=== PATIENT | female | born 2000 | race Caucasian/White ===

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

== ENCOUNTER 2024-02-22 16:14 | Emergency (ER) | payer OTHER, SELFPAY ==
--- NOTE | ~2024-02-22 | XR_ITS ---
EXAMINATION: XR lumbar spine 2-3V DATE: 02/22/2024 16:51 INDICATION: Bilateral low back pain TECHNIQUE: Anteroposterior and lateral views of the lumbar spine, and cone-down lateral view of the l umbosacral junction were obtained. COMPARISON: None. FINDINGS: 7 degrees lumbar levocurvature. Mild straightening of the normal lumbar lordosis. Vertebral body heig hts are normal. Mild disc height loss at L2-L3 through L5-S1. Sacrum and bilateral sacralized joints are unremarkable. IMPRESSION: 1. Mild lumbar levocurvature with mild spondylosis. Reviewed, dictated and finalized at location A.
[2024-02-22 16:20] VITALS: BP 123/71; PULSE 98; RESP 18; TEMP 36.6; O2SAT 99
--- NOTE | 2024-02-22 16:30 | ED.BACK ---
HPI - Back Pain/Injury General Chief Complaint: Back Pain/Injury Stated Complaint: lower back pain Time Seen by Provider: 02/22/24 16:30 Source: patient, RN notes reviewed and old records reviewed Mode of arrival: ambulatory Limitations: no limitations History of Present Illness HPI Narrative: Year old female to Express Care for complaint bilateral lower back pain for approximately 6-8 weeks. Patient reports the pain is getting increasingly worse. patient reports the pain constant and worse when bending over. Patient states that she has a 1-year-old and that is increasingly difficult for her to bend over and pick him up. Patient states that she has a history of mild scoliosis as a child that had resolved. Patient has attempted to treat at home with a heating pad and xaza-paf-ucenegt medications. Patient reports last menstrual cycle was January 16. Patient does not have a primary care provider. Patient denies urinary changes, saddle anesthesia, bowel changes, urinary or bowel incontinence, known injury, numbness, weakness, tingling. Patient currently endorsing pain 9/10. Patient in mild distress from discomfort; standing next to exam table, bent over with arms on table, stating she cannot get comfortable. No acute distress. Related Data Allergies Allergy/AdvReac Type Severity Reaction Status Date / Time acetaminophen Allergy Unknown Anaphylactic Verified 02/22/24 16:16 Shock hydrocodone Allergy Unknown Anaphylactic Verified 02/22/24 16:16 Shock Review of Systems Review of Systems: All systems reviewed & are unremarkable except as noted in HPI and below Constitutional: Constitutional: Reports no additional constitutional complaints Eyes: Eyes: Reports no additional eye complaints ENT: Reports system reviewed and no additional complaints, except as documented Cardiovascular: Cardiovascular: Reports no additional cardiovascular complaints, Denies chest pain and Denies dyspnea Respiratory: Respiratory: Reports no additional respiratory complaints, Denies cough and Denies dyspnea Musculoskeletal: Musculoskeletal: Reports as per HPI, Denies abnormal gait, Reports back pain, Reports limited range of motion, Denies muscle cramps, Denies muscle weakness, Denies numbness, Denies stiffness and Denies tingling Neurologic: Reports system reviewed and no additional complaints, except as documented Psychiatric: Psychiatric: Reports no additional psychiatric complaints PMFSH Past Medical History Medical History Strep pharyngitis Surgical History Surgical History No history of previous surgery Family History Family History Other Family history non-contributory Social History Social History Smoking status: Never smoker Alcohol intake: never Substance use: never Living arrangements: with family Comments At the time of my signature, I reviewed and agree with the nursing past medical, surgical, social, and family history. There is no relevant family history pertinent to the patient complaint. Exam Const: General: no acute distress, alert, in distress moderate (from pain), uncomfortable and well nourished Nutritional Appearance: well nourished Orientation/consciousness: patient oriented x3 Limitations: no limitations HENMT: Head: normal to inspection Ears: external ears normal Face/Nose/Sinus: Normal external nose present, Normal nares present, normal facial exam, No erythema and No edema Face and sinus: normal facial exam, no erythema and no edema Mouth: Yes Normal oral and palatal mucosa present Eyes: General: appearance normal, both eyes and all related structures Neck: Neck: normal visual inspection, full ROM and no meningeal signs Lymphatic: no lymph
== END 2024-02-22 17:46 | disposition home or self-care (01) ==
PROVIDERS: Emergency Provider Nurse Practitioner Family
DX: M47.816 Spondylosis without myelopathy or radiculopathy, lumbar region (principal); M54.50 Low back pain, unspecified
CPT/HCPCS: 72100; 99213; G0463

== ENCOUNTER 2024-09-26 17:10 | Emergency (ER) | payer OTHER, SELFPAY ==
--- NOTE | ~2024-09-26 | XR_ITS ---
EXAMINATION: XR ankle LT min 3V DATE: 09/26/2024 17:53 INDICATION: Left ankle pain. TECHNIQUE: 4 views of left ankle were obtained. COMPARISON: None. FINDINGS: Alignment is normal. No fracture. Joint spaces are normal. There is an enthesophyte at plan tar aspect of calcaneal tuberosity. IMPRESSION: 1. No fracture. Reviewed, dictated and finalized at location A. RANCE ADJUSTOR IMPRESSION: 1. No fracture.
--- OUTSIDE RECORDS SUMMARY | 2024-09-26 17:14 | XMS_ITS | Referral Summary ---
Author Organization [facility] Address [address] [place] [address] Care Team Providers Care Wire Charger Name Role Phone Nettie Rinaldi MD Primary Care Provider [phone] Allergies Active Allergy Reactions Criticality Noted Date Comments Hydrocodone-Acetaminophen Unknown 07/10/2021 States she was young when she took it and her mom didn't inform her what her reaction was. Medications vit-iron fum-folic ac 27 mg iron- 0.8 mg tablet Take 1 tablet by mouth daily Active docusate sodium (COLACE) 100 mg capsuleIndicati ons:constipatio n,Stool Softener Take 1 capsule (100 mg total) by mouth 2 (two) times a day as needed for constipation 60 capsule 3 Active ibuprofen (ADVIL,MOTRIN) 600 mg tabletIndicatio ns:Cramps Take 1 tablet (600 mg total) by mouth every 6 (six) hours as needed for pain 90 tablet 3 Active cyclobenzaprine (FLEXERIL) 10 mg tablet Take 1 tablet (10 mg total) by mouth nightly 10 tablet 4 Active lidocaine (LIDODERM) 5 % Place 1 patch on the skin daily Remove & discard patch within 12 hours or as directed by . 30 patch 4 Active Active Problems Problem Noted Date Diagnosed Date PROM (premature rupture of membranes) 12/02/2022 care following vaginal delivery 12/02 Overview (12/04/2022): # ID: Afebrile. No signs/symptoms of infection. 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 No symptoms acute blood loss anemia. # CV/Pulm: Vital signs stable, within normal limits. # GI/: Tolerating PO. Voiding spontaneously. # Pain: Controlled with above regimen. # MOC: Declines s/p counseling. # MOF: . Urine drug screen not indicated. Patient informed of results: N/A. # Post DVT prophylaxis: The patient has the following MAJOR risk factors none and the following MINOR risk factors BMI 30-39. SCDs ordered for VTE prophylaxis. # Disposition: Follow up task not sent.-plan follow up with primary OB in [place], [place]. Desires discharge home today. Social History Tobacco Use Types Packs/Day Years Used Date Smoking Tobacco: Never Smokeless Tobacco: Never Alcohol Use Standard Drinks/Week Comments Not Currently 0 (1 standard drink = 0.6 oz pur e alcohol) Social Connection and Isolat ion Panel [NHANES] Answer Date Recorded In a typical week, how many times do you talk on the phone with family, friends, or neighbors? More than three times a week 12/03/2022 How often do you get togethe r with friends or relatives? More than three times a week 12/03/2022 How often do you attend chur ch or mormon services? Never 12/03/2022 Do you belong to any clubs o r organizations such as gnosticist groups, unions, fraternal or athletic groups, or school groups? No 12/03/2022 How often do you attend meet ings of the clubs or organizations you belong to? Never 12/03/2022 Are you , , di vorced, , never , or living with a partner? Living with partner 12/03/2022 AUDIT-C Answer Date Recorded Q1: How often do you have a drink containing alc ohol? Never 12/02/2022 Average Number of Drinks Not on file 023 Frequency of Binge Drinking Not on file 11/05 Overall Financial Resource Strain (CARDIA) Answe r Date Recorded How hard is it for you to pa y for the very basics like food, housing, medical care, and heating? Not hard at all 12/03/2022 PHQ-2 Answer Date Recorded PHQ-2 Total Score (If total score is 3 or more points, staff should administer the PHQ-9) 0 11/22/2022 [facility] [place] [facility] Occupat ional Health - Occupational Stress Questionnaire Answer Date Recorded Do you feel stress - tense, restless, nervous, or anxious, or unable to sleep at night because your mind is troubled all the time - these days? Not at all 11/22/2022 Exercise Vital Sign Answer Date Recorde d On average, how many days pe r week do you engage in moderate to strenuous exercise (like a brisk walk)? 0 days 11/22/2022 On average, how many minutes do you engage in exercise at this level? 0 min 11/22/2022 Hunger Vital Sign Answer Date Recorded Within the past 12 months, y ou worried that your food would run out before you got the money to buy more. Never true 12/04/19 23 Within the past 12 months, t he food you bought just didn't last and you didn't have money to get more. Never true 12/03/2022 PRAPARE - Transportation Answer Date Re corded In the past 12 months, has l ack of transportation kept you from medical appointments or from getting medications? No 08/2022 In the past 12 months, has l ack of transportation kept you from meetings, work, or from getting things needed for daily living? No 12/03/2022 Housing Stability Vital Sign Answer Bashir e Recorded In the last 12 months, was t here a time when you were not able to pay the mortgage or rent on time? No 12/03/2022 In the last 12 months, how many places have you lived? 2 12/03/2022 In the last 12 months, was t here a time when you did not have a steady place to sleep or slept in a alf (including now)? No 12/03/2022 Personal Safety Answer Date Recorded Have you ever been in or are you currently in a harmful physical or emotional relationship or is someone making you feel afraid or unsafe? 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 Gender Identity Not on file Sexual Orientation Not on file Last Filed Vital Signs Vital Sign Reading Time Taken Comments Blood Pressure 120/85 03/31/2024 7:28 PM CDT Pulse 112 03/31/2024 7:27 PM CDT Temperature 36.9 C (98.5 F) 03/31/2024 7:27 PM CDT Respiratory Rate 18 03/31/2024 7:27 PM CDT Oxygen Saturation 98% 03/31/2024 7:27 PM CDT Inhaled Oxygen Concentration - - Weight 104.3 kg (230 lb) 03/31/2024 7:27 PM CDT Height 167.6 cm (5' 6 ) 03/31/2024 7:27 PM CDT Body Mass Index 37.12 03/31/2024 7:27 PM CDT Plan of Treatment Not on file Procedures Procedure Name Priority Date/Time Associated Diagnosis Comments N. GONORRHOEAE/C. TRACHOMATIS AMPLIFICATION Routine 12/02/2022 2:46 PM CDT from Last 3 Months or Most Recently Relevant to Health Maintenance Results * N. gonorrhoeae/C. trachomatis Amplification Urine (12/02/2022 2:46 PM CDT) C. trachomatis Not Detected Not Detected [facility] N. gonorrhoeae Not Detected Not Detected [facility] Comment: Interpretive Data Testing performed by the [facility]. This assay detects Chlamydia trachomatis and Neisseria gonorrhoeae by nucleic acid amplification testing (NAAT). This test is approved by the [place] Food and Drug Administration and the performance characteristics have been verified by the laboratory. The performance characteristics of this test have not been evaluated in individuals less than 14 years of age. Current Interpretive Data was last revised on 2018. Urine (None) 12/02/2022 2:46 PM CDT 12/02/2022 3:17 PM CDT Patricia Mckeon MD LAB MICROBIOLOGY - GENERAL ORDERABLES Final Result [facility] [place] [address] from Last 3 Months or Most Recently Relevant to Health Maintenance Insurance [facility] [id number] [place] [address] Advance Directives For more information, please contact: [phone] * Full Code (Latest Code Status on File) Date Activated Date Inactivated Comments 12/03/2022 2:11 AM 12/04/2022 9:52 PM * Full Code Date Activated Date Inactivated Comments 12/02/2022 1:44 PM 12/03/2022 2:11 AM Full CPR in c ase of cardiopulmonary arrest Care Teams Wire Charger Relationship Specialty Start Date End Date Nettie Rinaldi MD [id number] [place] [address] PCP - General Family Medicine 03/31/24
--- OUTSIDE RECORDS SUMMARY | 2024-09-26 17:14 | XMS_ITS | Data Portability ---
Author Organization [facility] ANNEOmar Address [address] [place] [address] Care Team Providers Care Laborer Tanbark Name Role Phone ALBA CABRERA Primary Care Provider DANTE HOWARD Roof Tiler Assessment Encounter Date Assessment Date Assessment LastModified by Organization Details LastModified Time 11/27/2022 11/27/2022 33+ weeks, GBs done today valtrex RX good spirits Not available 11/27/2022 11:33:55 12/11/2022 12/11/2022 ppd check today is normal discussed her transfer for PROM and subsequent delivery Not available 12/11/2022 11:59:29 12/25/2022 12/25/2022 ppd check today is OK will start minipill exam in 4 weeks Not available 12/25/2022 11:40:55 01/22/2023 01/22/2023 normal PP exam after first vaginal delivery breast and bottle feeding ; has started micronor / will call for regular OCPs when done no PPD issues / has enough help Not available 01/22/2023 12:08:34 01/27/2024 01/27/2024 manager practice exam benign will restart OCPs on next cycle for contraception and dysmenorrhea Not available 01/27/2024 15:45:09 Plan of Treatment Reminders Order Date Submit Date Provider Last Modified By Organization Details Last Modified Time Details Appointments None recorded. Lab cytology report, thin prep, smear or scraping, cervical or vaginal 2023 024 [facility], [address] [facility] [address], [place], [address], 4 16:12:54 urinalysis, dipstick 2022 023 In-Office Order, Internal Use Only DO Not Attach Compendium DO Not Attach Compendium, Do Not Delete/merge, [id number] 3 11:33:58 streptococc us group B DNA 2022 023 [facility], [address] [facility] [address], [place], [address], 3 16:13:29 Referral None recorded. Procedures None recorded. Surgeries None recorded. Imaging None recorded. Medication Orders Junel Fe 24 1 mg-20 mcg (24)/75 mg (4) tablet 2023 024 [id number], [address], [place], [place], [phone], 4 15:45:46 Ortho Micronor 0.35 mg tablet 2022 023 [facility][id number], [address], [place], [place], [phone], 3 11:41:17 valacyclovi r 500 mg tablet 2022 023 [facility] #[id number], [address], [place], [place], [phone], 3 11:34:06 Patient TargetsNo targets recorded. Patient Instructions Encounter Date Encounter Id Patient Instructions Last Modified By Organization Details Last Modified Time 11/27/2022 [id number] genital herpes: care instructions [email or web address] Not available 11/27/2022 11:33:58 tetanus and diphtheria booster: care instructions Not available 11/27/2022 11:33:58 12/11/2022 [id number] depression after childbirth: care instructions Not available 12/11/2022 11:59:30 stress in parent s of infants: care instructions Not available 12/11/2022 11:59:30 edinburgh depression scale* Not available 12/11/2022 11:59:30 12/25/2022 [id number] depression after childbirth: care instructions Not available 12/25/2022 11:41:10 stress in parent s of infants: care instructions Not available 12/25/2022 11:41:10 edinburgh depression scale* Not available 12/25/2022 11:41:10 01/22/2023 [id number] edinburgh depression scale* Not available 01/22/2023 12:08:34 01/27/2024 [id number] A healthy lifestyle: care instructions er7 Not available 01/27/2024 15:36:39 Quitting Tobacco : Care Instructions urner Not available 01/27/2024 15:36:38 Reason for Referral None Reported. Results Created Date Observation Date Name Description Value Unit Range Abnormal Flag Note LastModifiedBy Organization Detail LastModifiedTime 10/31/1910/30/2022 urina lysis , dipst ick Protein Negati ve Not Available In-Office Order Internal Use Only DO Not Attach Compendium DO Not Attach Compendium, Do Not Delete/merge, 10/26/2022 16:40:36 10/31/19 23 10/30/2022 urina lysis , dipst ick Glucose Negati ve Not Available In-Office Order Internal Use Only DO Not Attach Compendium DO Not Attach Compendium, Do Not Delete/merge, 10/26/2022 16:40:36 10/31/19 23 10/30/2022 urina lysis , dipst ick Appearance Slight ly Cloudy Not Available In-Office Order Internal Use Only DO Not Attach Compendium DO Not Attach Compendium, Do Not Delete/merge, 10/26/2022 16:40:36 10/31/19 23 10/30/2022 urina lysis , dipst ick Color Pale Yellow Not Available In-Office Order Internal Use Only DO Not Attach Compendium DO Not Attach Compendium, Do Not Delete/merge, [id number] 10/26/2022 16:40:36 11/14/19 23 11/13/2022 urina lysis , dipst ick Protein Trace Not Available In-Office Order Internal Use Only DO Not Attach Compendium DO Not Attach Compendium, Do Not Delete/merge, [id number] 11/12/2022 10:07:32 11/14/19 23 11/13/2022 urina lysis , dipst ick Glucose Negati ve Not Available In-Office Order Internal Use Only DO Not Attach Compendium DO Not Attach Compendium, Do Not Delete/merge, [id number] 11/12/2022 10:07:32 11/28/19 23 11/29/2022 STREP GP B AB strep gp B AB Positi ve negati ve abnormal Cente rs for Disea se Contr ol and Preve ntion (CDC) and Liz can Congr ess of Obste trici ans and Gynec ologi sts (ACOG ) guide lines for preve ntion of perin atal group B strep tococ grace (GBS) disea se speci fy co-co llect ion of a vagin al and recta l swab speci men to maxim ize sensi tivit y of GBS detec tion. Per the CDC and ACOG, swabb ing both the lower vagin a and rectu m subst antia lly incre ases the yield of detec tion polly red with sampl ing the vagin a alone . Penic illin G, ampic illin , or cefaz kate are indic ated for intra partu m proph ylaxi s of perin atal GBS colon izati on. Refle x susce ptibi lity testi ng shoul d be perfo rmed prior to use of clind amyci n only on GBS isola atilio from penic illin -rachel rgic women who are consi dered a high risk for anaph ylaxi s. Treat ment with vanco mycin witho ut addit ional testi ng is warra nted if resis tance to clind amyci n is noted . Not Available [facility] ([facility]) [address], [place], [address], 11/29/2022 16:13:29 11/28/19 23 11/27/2022 urina lysis , dipst ick Protein Negati ve Not Available In-Office Order Internal Use Only DO Not Attach Compendium DO Not Attach Compendium, Do Not Delete/merge, [id number] 11/26/2022 11:07:29 11/28/19 23 11/27/2022 urina lysis , dipst ick Glucose 2000+ Not Available In-Office Order Internal Use Only DO Not Attach Compendium DO Not Attach Compendium, Do Not Delete/merge, [id number] 11/26/2022 11:07:29 12/12/19 23 12/11/2022 edinb urgh postn atal depre ssion scale * Score 2 Not Available In-Office Order Internal Use Only DO Not Attach Compendium DO Not Attach Compendium, Do Not Delete/merge, [id number] 12/11/2022 11:31:45 12/26/19 23 12/25/2022 edinb urgh postn atal depre ssion scale * Score 2 Not Available In-Office Order Internal Use Only DO Not Attach Compendium DO Not Attach Compendium, Do Not Delete/merge, [id number] 12/25/2022 11:28:55 01/23/20 23 01/22/2023 edinb urgh postn atal depre ssion scale * Score 0 Not Available In-Office Order Internal Use Only DO Not Attach Compendium DO Not Attach Compendium, Do Not Delete/merge, [id number] 01/22/2023 11:56:43 01/27/20 24 01/29/2024 IGP,C TNGTV ,RFX APTIM A HPV ASCU diagnosis: COMMEN T NEGAT JODIE FOR INTRA EPITH ELIAL LESIO N OR AISSATOU TEJADA . Not Available [facility] ([facility]) [address], [place], [address], 01/29/2024 16:12:54 01/27/20 24 01/29/2024 IGP,C TNGTV ,RFX APTIM A HPV ASCU specimen adequacy: COMMEN T Satis facto ry for evalu ation . Endoc ervic al and/o r squam ous metap lasti c cells (endo cervi grace compo nent) are prese nt. Not Available [facility] ([facility]) [address] [place], [address], 01/29/2024 16:12:54 01/27/20 24 01/29/2024 IGP,C TNGTV ,RFX APTIM A HPV ASCU clinician provided ICD10: BETO Cast Z01.4 19 Not Available [facility] ([facility]) [address] [place], [address], 01/29/2024 16:12:54 01/27/20 24 01/29/2024 IGP,C TNGTV ,RFX APTIM A HPV ASCU performed by: Chito Rios (ASCP ) Not Available [facility] ([facility]) [address] [place], [address], 01/29/2024 16:12:54 01/27/20 24 01/29/2024 IGP,C TNGTV ,RFX APTIM A HPV ASCU . . Not Available [facility] ([facility]) [address] [place], [address], 01/29/2024 16:12:54 01/27/20 24 01/29/2024 IGP,C TNGTV ,RFX APTIM A HPV ASCU note: BETO Cast The Pap smear is a scree surya test desig lissy to aid in the detec tion of ty ligna nt and malig nant condi tions of the uteri ne cervi x. It is not a diagn ostic proce dure and shoul d not be used as the sole means of detec ting cervi grace cance r. Both false -posi tive and false -nega tive repor ts do occur . Not Available [facility] ([facility]) [address] [place], [address], 01/29/2024 16:12:54 01/27/20 24 01/29/2024 IGP,C TNGTV ,RFX APTIM A HPV ASCU test methodology: COMMEN T This liqui d based ThinP rep(R ) pap test was ousmane yuan with the use of an image guide charito lopez Not Available [facility] ([facility]) [address] [place], [address], 01/29/2024 16:12:54 01/27/20 24 01/29/2024 IGP,C TNGTV ,RFX APTIM A HPV ASCU . COMMEN T The HPV DNA refle x crite marilynn were not met with this speci men resul t there fore, no HPV testi ng was perfo rmed. Not Available [facility] ([facility]) [address] [place], [address], 01/29/2024 16:12:54 01/27/20 24 01/29/2024 IGP,C TNGTV ,RFX APTIM A HPV ASCU chlamydia, nuc. acid amp NEGATI VE negati ve Not Available [facility] ([facility]) [address] [place], [address], 01/29/2024 16:12:54 01/27/20 24 01/29/2024 IGP,C TNGTV ,RFX APTIM A HPV ASCU gonococcus, nuc. acid amp NEGATI VE negati ve Not Available [facility] ([facility]) [address] [place], [address], 01/29/2024 16:12:54 01/27/20 24 01/29/2024 IGP,C TNGTV ,RFX APTIM A HPV ASCU trich vag by AB NEGATI VE negati ve Not Available [facility] ([facility]) [address] [place], [address], 01/29/2024 16:12:54 Result Notes None recorded. Problems Name Problem SNOMED Code Status Onset Date Resolution Date Notes Provider Name and Address Organization Details Recorded Time 05127024 Completed 202112/11/2022 Trena Kong, RMA null, [place] - [facility] 3 11:30:58 Idiopathic scoliosis 603908517 Active Not Available [facility] 19:09:27 Increased body mass index 56710941 Active Not Available [facility] 19:09:27 Backache 996170866 Active Not Available [facility] 19:09:27 Thyroid stimulatin g hormone level above reference range 938792682 Active Not Available [facility] 19:09:27 Vitamin D deficiency 64219490 Active Not Available [facility] 19:09:27 Upper respirator y infection 37342641 Active Not Available [facility] 19:09:27 Problem Notes None recorded. Medical Equipment None Reported. Allergies Allergen ID Allergen Name Allergen Category Reaction Reaction Severity Criticality Documentation Date Start Date Code Code System Note Provider Name and Address Organization Details Recorded Time 056531 acetamino phen / hydrocodo ne medicatio n Not available Not available Not available 12/16/2017 27384 2 RxNorm Not Available Not Available Not Available Medications Name Sig Start Date Stop Date Status Note LastModified by Organization Details LastModified Time prednisone 20 mg tablet TAKE 1 TABLET BY MOUTH TWICE DAILY FOR 5 DAYS 05/18 completed Not Available Not Available Not Available valacyclovir 500 mg tablet TAKE 1 TABLET BY MOUTH EVERY DAY active Not Available Not Available No t Available amoxicillin 875 mg tablet TAKE 1 TABLET BY MOUTH EVERY 12 HOURS 05/18 completed Not Available Not Available Not Available dexamethason e 4 mg tablet TAKE 2 TABLETS BY MOUTH ONCE 05/18 completed Not Available Not Available Not Available docusate sodium 100 mg capsule active Not Available Not Available N ot Available ibuprofen 600 mg tablet active Not Available Not Available Not Available norethindron e (contracepti ve) 0.35 mg tablet TAKE 1 TABLET BY MOUTH EVERY DAY active Not Available Not Available No t Available Aurovela 24 Fe 1 mg-20 mcg (24)/75 mg (4) tablet TAKE 1 TABLET BY MOUTH EVERY DAY active Not Available Not Available No t Available Vitals Date Recorded Body height Body mass index (BMI) Percentile per age and sex Body mass index (BMI) Systolic blood pressure Diastolic blood pressure Provider Name and Address Organization Details Last Updated DateTime 11/27/2022 166.37 cm 95 % 31.3 kg/m2 113 mm[Hg] 75 mm[Hg] Trena Kong Shital [facility] 3 11:22:05 Date Recorded Body weight Provider Name an d Address Organization Details Last Updated DateTime 11/27/2022 09017.530197 g Dante Howard MD Attn: Accounting,[address] [facility], [place], [address], [facility] 11/27/2022 11:33:20 Date Recorded Body height Body mass index (BMI) Body mass index (BMI) Percentile per age and sex Body weight Systolic blood pressure Diastolic blood pressure Provider Name and Address Organization Details Last Updated DateTime 3 166.37 cm 29.3 kg/m2 92 % 92927.1 61241 g 111 mm[Hg] 70 mm[Hg] Trena Kong [facility] 3 11:29:39 Date Recorded Body height Body mass index (BMI) Body mass index (BMI) Percentile per age and sex Body weight Systolic blood pressure Diastolic blood pressure Provider Name and Address Organization Details Last Updated DateTime 3 166.37 cm 29.5 kg/m2 92 % 27428.9 1 g 102 mm[Hg] 66 mm[Hg] Trena Kong [facility] 3 11:26:53 Date Recorded Body height Body mass index (BMI) Body mass index (BMI) Percentile per age and sex Body weight Systolic blood pressure Diastolic blood pressure Provider Name and Address Organization Details Last Updated DateTime 3 166.37 cm 30.8 kg/m2 94 % 18423.3 7 g 132 mm[Hg] 74 mm[Hg] Trena Kong [facility] 3 11:55:45 Date Recorded Body height Body mass index (BMI) Body weight Systolic blood pressure Diastolic blood pressure Provider Name and Address Organization Details Last Updated DateTime 01/27/2024 166.37 cm 37.7 kg/m2 352172.5 3 g 128 mm[Hg] 74 mm[Hg] KRYSTAL Gan [facility] 4 15:30:21 Social History Question Answer Notes LastModified by Organizat ion Details LastModified Time Tobacco Smoking Status Never Smoker Jami JAISON Srivastava, [facility] 10/17/2015 15:39:01 Do You Wear A Helmet When Biking? No Information not available 10/17/2015 Are You Or Have You Been Involved With Bullying? No Information not available 10/17/2015 What Is Your Level Of Caffeine Consumption? Moderate Information not available 12/03/2016 What Type Of Supervisor Hide House Do You Use? None Information not available 02/14/2021 In The 14 Days Before Symptom Onset, Have You Had Close Contact With A Laboratory-confi rmed COVID-19 While That Case Was Ill? No Information not available 05/18/2022 In The 14 Days Before Symptom Onset, Have You Had Close Contact With A Person Who Is Under Investigation For COVID-19 While That Person Was Ill? No Information not available 05/18/2022 Have You Been To An Area Known To Be High Risk For COVID-19? No Information not available 05/18/2022 What Type Of Diet Are You Following? REGULAR Information not available 10/17/2015 Do You Or Have You Ever Used E-cigarettes Or Vape? Current User Of Electronic Cigarettes Information not available 01/27/2024 What Is The Highest Grade Or Level Of School You Have Completed Or The Highest Degree You Have Received? [id number] 1 Information not available 02/14/2021 Have There Been Any Changes To Your Family Or Social Situation? No Information not available 10/17/2015 Are There Any Guns Present In Your Home? No Information not available 10/17/2015 What Is Your Home Situation? Mother Lives With Step Father And Mom Information not available 10/17/2015 Do You Use Insect Repellent Routinely? Yes Information not available 10/17/2015 Car Seat Type Or Seat Belt? Seat Belt Information not available 10/17/2015 Parent Involvement? Dad Not Invloved Information not available 10/17/2015 Riding In Car Front Seat? Yes Information not available 10/17/2015 What Was The Date Of Your Most Recent Tobacco Screening? 01/27/2024 Information not available 01/27/2024 How Many Children Do You Have? 0 Information not available 05/18/2022 Pool Exposure No Information not available 10/17/2015 Are You Sexually Active? Yes Information not available 05/18/2022 Do You Have Any Siblings? 2 Brothers 1 Sisters Information not available 10/17/2015 Do You Have Smoke And Carbon Monoxide Detectors In Your Home? Yes Information not available 10/17/2015 Are You Passively Exposed To Smoke? Yes Mom Smokes In Garage Information not available 12/03/2016 Do You Or Have You Ever Used Smokeless Tobacco? Never Used Smokeless Tobacco Information not available 01/27/2024 Do You Use Sunscreen Routinely? Yes Information not available 10/17/2015 Has Tobacco Cessation Counseling Been Provided? Yes Information not available 01/27/2024 On What Date Was Tobacco Cessation Counseling Provided? 01/27/2024 Information not available 01/27/2024 Do You Or Have You Ever Used Any Other Forms Of Tobacco Or Nicotine? Yes Information not available 01/27/2024 Sex: Female Functional Status Question Answer Note LastModified by Organizat ion Details LastModified Time What is your exercise level? Occasional Information not available 10/17/2015 Mental Status None recorded. Family History Relationship Description Onset Age of this Age Resolved Age Notes LastModified by Organization Details LastModified Time Father Diabetes mellitus sattebery Not available 2015 16:12:22 Maternal Grandfather Diabetes mellitus sattebery Not available 2015 16:12:22 Sister Ulcerative colitis dx'd at age 5 y/o sattebery Not available 04/17/2016 16:12:22 Notes:No Hx. of breast CA Medical History Condition Response Blood Diseases N Ear or Hearing Problems N Thyroid Problems N Depression N Developmental or Behavioral Disorders N Skin Problems N Premature N Anemia N Constipation N Headaches/Migraines Y Anxiety Disorder N Diabetes N Muscle, Joint, or Bone Problems N Bedwetting N Vision or Eye Problems N Heart Problems/Murmur N Seizures/Epilepsy N Head Injury/Concussion N Cancer N Asthma N Allergies N ADHD N Bladder or Kidney Problems N Headaches N Chicken Pox N Autism Spectrum Disorder (ASD) N Gynecological History Statement/Question Response Flow Heavy STIs/STDs N HPV Vaccine Y Duration of Flow (days) 6 Age at Menarche 13 Current Control Method None Frequency of Cycle (Q days) 28 Sexually Active? Y Menses Monthly N Sexual Problems? N LMP Approximate Desired Control Method BCPs Obstetrics History GPAL:G 1 P 0 1 0 1 Type Value Premature 1 Living 1 Total 1 Immunizations Vaccine Type Date Status Note Provider Name and Address Organization Details Recorded Time Influenza, split virus, quadrivalent, PF 10/17/19 16 completed Not Available [facility] 08/22/2019 02:46:39 Influenza, split virus, quadrivalent, PF 04/17/20 16 completed Not Available [facility] 08/22/2019 02:46:08 meningococcal MCV4P 03/01/20 14 completed Trena Kong R[place], [place] [facility] 05/18/2022 14:05:27 influenza, split (incl. purified surface antigen) 07/01/20 07 completed Trena [place] [facility] 05/18/2022 14:05:27 DTaP-Hep B-IPV 05/27/20 03 completed Trena [place] [facility] 05/18/2022 14:05:27 DTaP-Hep B-IPV 06/28/20 03 completed Trena [place] [facility] 05/18/2022 14:05:27 DTP 03/30/20 08 completed Trena [place] [facility] 05/18/2022 14:05:27 DTaP 01/24/20 05 completed Trena [place] [facility] 05/18/2022 14:05:27 Hep A, unspecified formulation 03/30/20 08 completed Trena [place] [facility] 05/18/2022 14:05:27 Influenza, live, quadrivalent, intranasal 05/05/20 14 completed Trena [place] [facility] 05/18/2022 14:05:27 HPV, quadrivalent 09/01/19 15 completed Not Available [facility] 08/22/2019 02:43:44 meningococcal B, OMV 12/06/19 19 completed Not Available [facility] 08/22/2019 02:37:32 meningococcal MCV4P 12/06/19 19 completed Not Available [facility] 08/22/2019 02:46:10 meningococcal B, OMV 01/08/20 19 completed Not Available [facility] 08/22/2019 02:37:32 Tdap 03/11/20 13 completed Trena [place] [facility] 05/18/2022 14:05:27 Hep A, pediatric, unspecified formulation 03/30/20 08 completed Not Available [facility] 01/22/2023 11:33:41 varicella 03/30/20 08 completed Trena [place] [facility] 05/18/2022 14:05:27 MMR 11/30/19 05 completed Not Available [facility] 07/10/2021 19:09:28 pneumococcal conjugate PCV 7 11/29/19 06 completed Not Available [facility] 07/10/2021 19:09:27 HPV, quadrivalent 05/05/20 14 completed Trena [place] [facility] 05/18/2022 14:05:27 DTaP 11/30/19 05 completed Not Available [facility] 07/10/2021 19:09:27 MMR 03/30/20 08 completed Not Available [facility] 07/10/2021 19:09:28 DTaP 06/28/20 03 completed Not Available [facility] 01/22/2023 11:33:42 influenza, unspecified formulation 06/28/20 03 completed Not Available [facility] 07/10/2021 19:09:27 DTaP 05/27/20 03 completed Not Available [facility] 01/22/2023 11:33:41 polio, unspecified formulation 03/30/20 08 completed Trena [place] [facility] 05/18/2022 14:05:27 meningococcal MCV4, unspecified formulation 03/01/20 14 completed Not Available [facility] 01/22/2023 11:33:42 HPV, quadrivalent 03/01/20 14 completed Trena Kong, Sh[place] doe, [place] [facility] 05/18/2022 14:05:27 Hep B, adolescent or pediatric 05/27/20 03 completed Not Available [facility] 01/22/2023 11:33:41 polio, unspecified formulation 11/30/19 05 completed Not Available [facility] 07/10/2021 19:09:27 pneumococcal conjugate PCV 7 06/28/20 03 completed Not Available [facility] 07/10/2021 19:09:28 Hib (HbOC) 01/24/20 05 completed Not Available [facility] 07/10/2021 19:09:27 polio, unspecified formulation 05/27/20 03 completed Not Available [facility] 01/22/2023 11:33:41 polio, unspecified formulation 06/28/20 03 completed Not Available [facility] 01/22/2023 11:33:41 DTaP 03/30/20 08 completed Not Available [facility] 01/22/2023 11:33:41 Hep A, pediatric, unspecified formulation 01/24/20 05 completed Not Available [facility] 07/10/2021 19:09:28 Hep B, adolescent or pediatric 11/18/19 03 completed Not Available [facility] 07/10/2021 19:09:27 Hep B, adolescent or pediatric 06/28/20 03 completed Not Available [facility] 01/22/2023 11:33:41 Hep B, adolescent or pediatric 11/30/19 05 completed Not Available [facility] 07/10/2021 19:09:27 influenza, unspecified formulation 05/05/20 14 completed Not Available [facility] 01/22/2023 11:33:41 Hib (HbOC) 05/27/20 03 completed Not Available [facility] 07/10/2021 19:09:27 pneumococcal conjugate PCV 7 05/27/20 03 completed Not Available [facility] 07/10/2021 19:09:27 influenza, unspecified formulation 07/01/20 07 completed Not Available [facility] 01/22/2023 11:33:41 Hep A, pediatric, unspecified formulation 11/29/19 06 completed Not Available [facility] 07/10/2021 19:09:28 varicella 11/30/19 05 completed Not Available [facility] 07/10/2021 19:09:28 Hib (HbOC) 06/28/20 03 completed Not Available [facility] 07/10/2021 19:09:27 COVID-19, mRNA, LNP-S, PF, 100 mcg/0.5mL dose or 50 mcg/0.25mL dose 02/01/20 21 completed Tessie Ledesma [place] null, [place] [facility] 02/01/2021 09:42:35 COVID-19, mRNA, LNP-S, PF, 100 mcg/0.5mL dose or 50 mcg/0.25mL dose 02/29/20 21 completed Steve Fountain RN [place], [place] [facility] 02/28/2021 13:07:06 Tdap 11/28/19 23 cancelled patient objection Dante Howard MD Attn: Accounting,[address] [place] [address], [address], [place] - [facility] 11/27/2022 11:33:58 Past Encounters Encounter ID Performer Location Encounter Start Date Encounter Closed Date Diagnosis/Indication Diagnosis SNOMED-CT Code Diagnosis ICD10 Code Diagnosis Note [id number] Shabnam Caldwell (Peds) [address] [place] [address] 09/01/2014 08:49:02 09/01/2014 09:41:58 Active or passive immunization [id number] CHINA Francohalto (Peds) [address] [place] [address] 10/17/2015 15:24:08 10/19/2015 03:48:07 Well child 158169945 Z00.129 Anticipato ry guidance given. Flushot given. Idiopathic scoliosis 203 267985 M41.119 Will order x-ray. Increased body mass index 51962015 Z68.41 BMI 96th %, reviewed diet changes and getting 30 minutes of cardio exercise 4 times/wk. [id number] MD Paulette Licona (Peds) [address] [place] [address] 04/17/2016 15:46:52 04/18/2016 08:18:39 Increased body mass index 38504798 Z68.41 BMI 96th %, reviewed diet changes including decreasing portion sizes, eliminatin g all sodas, and eatig vegetables and fruits. Recommende d getting 30 minutes of cardio exercise 4 times/wk. Vitamin D deficiency 347 18455 E55.9 will check level toay. Upper resp iratory infection 58694926 J06.9 Ddx includes allergies. Samples of zyrtec given. Active or passive immunization 541081889 Z23 [id number] MD Paulette Licona (Peds) [address] [place] [address] 12/03/2016 14:08:17 12/07/2016 10:52:04 Well child 401637944 Z00.129 Anticipato ry guidance given. Shots UTD. Increased body mass index 18087991 Z68.41 BMI 96th %, reviewed diet changes including decreasing portion sizes, eliminatin g all sodas, and eating vegetables and fruits. Recommende d getting 30 minutes of cardio exercise 4 times/wk. Screening labs done in last year, wnl. F/u 6 months. [id number] MD Paulette Licona (Peds) [address] [place] [address] 11/12/2017 16:14:53 11/18/2017 14:39:19 Well child 511239084 Z00.129 Anticipato ry guidance given. Shots UTD. Increased body mass index 45417289 Z68.41 BMI 97th %, reviewed diet changes including decreasing portion sizes, eliminatin g all sodas, and eating vegetables and fruits. Recommende d getting 30 minutes of cardio exercise 4 times/wk. Screening labs ordered. F/u 6 months. Diet education 73677312 Z71.3 Examinatio n for other specified condition 739087767 Z02.5 [id number] MD Edd Parker 14 OB [address] [facility] [address] [place] [address] 12/16/2017 16:14:08 12/19/2017 14:27:39 Body mass index 25-29 - overweight 265121542 Z68.29 Dysmenorrhea 380863878 N 94.6 [id number] MD Edd Parker 14 OB [address] [facility] [place] [address] 05/20/2018 15:36:57 05/26/2018 15:26:09 Dysmenorrhea 061034737 N94.6 [id number] Alba Cabrera MD [facility] (Peds) [address] [facility] [place] [address] 11/11/2018 15:43:46 11/12/2018 13:03:26 Well child 368833215 Z00.129 BMI at 94%. Reviewed 5-2-1-0 message. Recommende d eliminatin g all sugary drinks and getting daily exercise. Anticipato ry guidance given. Shots UTD. Academic underachievement 396363268 Z55.3 Pt. not putting effort with school work. Discussed importance of learning and maintainin g grades. Recommende d [employer] and going to summer school. Get tutoring if any subject areas are challengin g. Idiopathic scoliosis 203 734913 M41.119 Pt. has mild scoliosis. [id number] Myla Benavides MA [facility] (Peds) [address] [facility] [address] 12/05/2018 09:09:04 12/08/2018 10:50:43 Active or passive immunization 250366220 Z23 [id number] Opal Martinez RN [facility] (Peds) [address] [facility] [place] [address] 01/07/2019 10:51:11 01/08/2019 16:03:20 Active or passive immunization 427695627 Z23 [id number] MD Edd Parker 14 OB [address] [facility] [address] [place] [address] [address] 06/09/2019 15:43:58 06/11/2019 09:42:55 Contraception care management 993750285 Z30.9 [id number] MD Edd Parker 14 OB [address] [facility] [place] [address] 01/10/2021 14:24:05 01/12/2021 16:41:22 Contraception care management 523454049 Z30.9 [id number] AAYUSH Scott 14 IM [address] [facility] [place] [address] 01/31/2021 15:58:06 02/01/2021 15:50:56 Administration of SARS-CoV-2 antigen vaccine 811560978 Z23 [id number] Alba Cabrera MD [facility] (Peds) [address] [place] [address] 02/14/2021 14:53:00 02/17/2021 09:13:24 Diet education 14584127 Z71.3 Exercises education, guidance, and counseling 984769453 Z71.82 Adult [facility] th examination 633945018 Z00.00 Increased body mass index 33114712 Z68.41 BMI 92th %, reviewed diet changes including decreasing portion sizes, eliminatin g all sodas, and eating vegetables and fruits. Recommende d getting 30 minutes of cardio exercise 4 times/wk. Screening labs ordered. F/u 6 months. [id number] Kwame Vazquez 14 IM [address] [place] [address] 02/28/2021 09:46:33 03/01/2021 09:00:57 Administration of SARS-CoV-2 antigen vaccine 192726277 Z23 [id number] MD Edd Parker 14 OB [address] [place] [address] 05/18/2022 13:42:55 05/21/2022 09:20:46 Early stage of 039335131 Z34.90 [id number] MD Edd Parker 14 OB [address] [place] [address] 06/26/2022 16:31:21 06/27/2022 16:30:42 Normal 36082716 Z34.90 [id number] MD Edd Parker 14 OB [address] [place] [address] 07/17/2022 15:44:19 07/18/2022 08:20:12 Normal 36221016 Z34.90 [id number] MD Edd Parker 14 OB [address] [place] [address] 08/21/2022 10:29:19 08/23/2022 11:33:23 Normal 41222623 Z34.90 [id number] MD Edd Parker 14 OB [address] [facility] [place] [address] 09/11/2022 10:28:31 09/12/2022 10:45:06 Normal 93868219 Z34.90 [id number] MD Edd Parker 14 OB [address] [facility] [place] [address] 10/09/2022 09:45:50 10/10/2022 10:00:06 Normal 47553577 Z34.90 [id number] MD Edd Parker 14 OB [address] [facility] [place] [address] 10/30/2022 09:58:25 10/31/2022 11:10:11 Normal 03565568 Z34.90 [id number] MD Edd Parker 14 OB [address] [facility] [place] [address] 11/13/2022 11:07:51 11/15/2022 10:36:38 Normal 67968341 Z34.90 [id number] MD Edd Parker 14 OB [address] [facility] [place] [address] 11/27/2022 10:52:38 12/03/2022 07:57:06 Normal 26430259 Z34.90 Administra tion of diphtheria, pertussis, and tetanus vaccine 215406363 Z23 Genital he rpes simplex 62820590 A60.9 [id number] MD Edd Parker 14 OB [address] [facility] [place] [address] 12/11/2022 10:58:28 12/12/2022 11:50:49 care 294323401 Z39.2 depression 58 248768 F53.0 [id number] MD Edd Parker [address] [place] [address] [place] [address] 12/25/2022 10:56:37 12/26/2022 09:15:16 care 244324672 Z39.2 depression 58 085379 F53.0 Contracept ion care management 925917790 Z30.9 [id number] MD Edd Parker 14 OB [address] [facility] [address] [place] [address] 01/22/2023 11:32:55 02/02/2023 08:32:00 care 512801571 Z39.2 [id number] MD Edd Parker 14 OB [address] [facility] [address] [place] [address] 01/27/2024 15:10:40 01/30/2024 08:50:06 Smoker 18194465 F17.200 Obesity 802856817 E66.8 Gynecologi c examination 07535866 Z01.419 Contracept ion care management 588894570 Z30.9 Health Concerns Section Related Observation LastModified by Organization Detai ls LastModified Time None Recorded Concern Status LastModified by Organization Details LastModified Time None Recorded Advance Directives Directive None Recorded Payers Encounter Date Sequence Insurance Name Policy Number Policy Carrizales Covered Member ID Carrizales Member ID Guarantor Name 11/27/2022 1 [facility] ON OR AFTER 02/02/21 (MEDICAID REPLACEMENT - HMO) Mary Fountain [id number] Sommer De La Cruz 12/11/2022 1 [facility] ON OR AFTER 02/02/21 (MEDICAID REPLACEMENT - HMO) Mary Fountain [id number] Sommer De La Cruz 12/25/2022 1 [facility] ON OR AFTER 02/02/21 (MEDICAID REPLACEMENT - HMO) Mary Fountain [id number] Sommer De La Cruz 01/22/2023 1 [facility] ON OR AFTER 02/02/21 (MEDICAID REPLACEMENT - HMO) Mary Fountain [id number] Sommer De La Cruz 01/27/2024 1 [facility] ON OR AFTER 02/02/21 (MEDICAID REPLACEMENT - HMO) Mary Fountain [id number] Sommer De La Cruz Notes Date Note Type Note Provider Name and Address Organization Details Recorded Time 12/11/2022 text/html Had PPROM at 34 3/7 weeks, was transferred to [place] delivered 5'6 boy named Eliane. He is still in hospital, but doing OK no ppd issues evident today Dante Howard MD Attn: Accounting,[address] [facility], [place], [address], [facility] 12/11/2022 11:59:43 12/25/2022 text/html 3 weeks out from delivery son is up to 6'4 , still in NICU, working on feeding She would be interested in minipill while pumping Dante Howard MD Attn: Accounting,[address] [place], [address], [facility] 12/25/2022 11:41:28 01/27/2024 text/html Annual GYNReport ed bypatient.Menstrua l cycle:Normal menses Urinary symptoms:No hematuria; No incontinence Vulva:No genital lesion Vagina:Normal vaginal discharge Breast:No breast pain; No breast lump; No nipple discharge Sexual complaints:No sexual complaints; No pain during intercourse; Normal libido Menopausal Symptoms:No menopausal symptoms; Normal vaginal lubrication Psychological symptoms:No depression; No anxiety; No PMDD some cramps with periods3 y.o. son had wild jungle' themed 1st bday green party Dante Howard MD Attn: Accounting,[address] [place], [address], [facility] 01/27/2024 15:45:58 OBGyn Episode Ob Episode Information Episode Created Date Number of Fetuses Patient Bloodtype Patient rh Status Prepregnancy Weight lbs Domestic Partner Domestic Partner Phone Father Name Diver Pumper Status 06/26/20 22 1 O Positive CLOSED Fetus Data First Name Last Name Admitted to NICU Weight (g) Sex Living Outcome Pediatric Complications Fetus ID Race Codes Race Delivery Type Burr true 2438.05 7 M true Prematur e [id number] White Vaginal Michael Calculation Initial Michael Date Initial Exam Date Initial Exam Provider Initial Ultrasound Date Last Menstrual Period Date Ultra Sound Weeks Gestation 01/10/2023 06/26/2022 06/12/2022 04/05/2022 9 Eighteen To Twenty Week Michael Update Ultra Sound Date Fundal Height At Umbil Quickening Date Ultra Sound Latest Weeks Gestation Final Michael Confirmed By Final Michael Confirmed Date Final Michael Date Ultra Sound Latest Days Gestation 07/24/20 22 16 08/21/2022 01/11/20 23 1 Pre- Flowsheet Flowsheet Date 06/26/2022 Stanley Score Blood Edema Fundus Height Fundus Units Glucose Ketones Leukocytes Nitrite Labor Signs Protein Cervic Dilation Cervic Effacement Cervic Station Type Weight in lbs Pre/Post Dialysis Refused With clothes 164.568683753251 BP Diastolic BP Location Tested BP Systolic BP Type 70 116 sitting Fetus Heart Rate Present A 145 Present Fetus Movement Comments doing well, no issuesno exam today with big family crowd Flowsheet Date 07/17/2022 Stanley Score Blood Edema Fundus Height Fundus Units Glucose Ketones Leukocytes Nitrite Labor Signs Protein Cervic Dilation Cervic Effacement Cervic Station 14 wks Type Weight in lbs Pre/Post Dialysis Refused With clothes 167.765767126585 BP Diastolic BP Location Tested BP Systolic BP Type 70 112 sitting Fetus Heart Rate Present A 163 Present Fetus Movement Comments doing well, no issuesdiscuss ed + HSV2 test ( surprised)plan US in 3 weeks, return here in 5 weeks Flowsheet Date 08/21/2022 Stanley Score Blood Edema Fundus Height Fundus Units Glucose Ketones Leukocytes Nitrite Labor Signs Protein Cervic Dilation Cervic Effacement Cervic Station none 19 wks none neg Type Weight in lbs Pre/Post Dialysis Refused With clothes 173.109420884426 BP Diastolic BP Location Tested BP Systolic BP Type 72 116 sitting Fetus Heart Rate Present A 156 Present Fetus Movement A Yes Comments 20 weeks doing well, was abo y, will be named eliane will need f/u US after next visit Flowsheet Date 09/11/2022 Stanley Score Blood Edema Fundus Height Fundus Units Glucose Ketones Leukocytes Nitrite Labor Signs Protein Cervic Dilation Cervic Effacement Cervic Station none 22 wks none neg Type Weight in lbs Pre/Post Dialysis Refused With clothes 175.002818685660 BP Diastolic BP Location Tested BP Systolic BP Type 70 114 sitting Fetus Heart Rate Present A 149 Present Fetus Movement A Yes Comments doing well, eating will sa usagesplan sugar test at next visitf/u US as well Flowsheet Date 10/09/2022 Stanley Score Blood Edema Fundus Height Fundus Units Glucose Ketones Leukocytes Nitrite Labor Signs Protein Cervic Dilation Cervic Effacement Cervic Station none 24 cm none neg Type Weight in lbs Pre/Post Dialysis Refused With clothes 183.819818048984 BP Diastolic BP Location Tested BP Systolic BP Type 79 129 sitting Fetus Heart Rate Present A 145 Present Fetus Movement A Yes Comments doing sugar test now.no new issuesf/u US was good Flowsheet Date 10/30/2022 Stanley Score Blood Edema Fundus Height Fundus Units Glucose Ketones Leukocytes Nitrite Labor Signs Protein Cervic Dilation Cervic Effacement Cervic Station none 27 cm none neg Type Weight in lbs Pre/Post Dialysis Refused With clothes 186.020468299966 BP Diastolic BP Location Tested BP Systolic BP Type 58 95 sitting Fetus Heart Rate Present A 158 Present Fetus Movement A Yes Comments 29 weeks doing well.passed s ugar testactive baby. No new issues Flowsheet Date 11/13/2022 Stanley Score Blood Edema Fundus Height Fundus Units Glucose Ketones Leukocytes Nitrite Labor Signs Protein Cervic Dilation Cervic Effacement Cervic Station none 29 cm none trace Type Weight in lbs Pre/Post Dialysis Refused With clothes 192.382845896981 BP Diastolic BP Location Tested BP Systolic BP Type 72 112 sitting Fetus Heart Rate Present A 143 Present Fetus Movement A Yes Comments doing well, some low back pa in discussedno new issues otherwise, good spirits Flowsheet Date 11/27/2022 Stanley Score Blood Edema Fundus Height Fundus Units Glucose Ketones Leukocytes Nitrite Labor Signs Protein Cervic Dilation Cervic Effacement Cervic Station none 31 cm none neg Type Weight in lbs Pre/Post Dialysis Refused With clothes 191.199944530700 BP Diastolic BP Location Tested BP Systolic BP Type 75 113 sitting Fetus Heart Rate Present A 143 Present Fetus Movement A Yes Comments GBS done todayBack in 2 week s.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 Flowsheet Date 12/11/2022 Stanley Score Blood Edema Fundus Height Fundus Units Glucose Ketones Leukocytes Nitrite Labor Signs Protein Cervic Dilation Cervic Effacement Cervic Station Type Weight in lbs Pre/Post Dialysis Refused With clothes 179.810029242627 BP Diastolic BP Location Tested BP Systolic BP Type 70 111 sitting Fetus Heart Rate Present Fetus Movement Comments Menstrual History Last Menstrual Date Menses Monthly On Bcp Conception Prior Menses Frequency Hcg Plus Date Menarche Onset Age 0904/05/2022 Genetic Screening And Infection History Question Response Note Patient's Age Will Be 35 Years Or Older At Estim ated Date of Delivery false Thalassemia (Zambian, Prydeinig, Mediterranean, Or Background): MCV < 80 false Neural Tube Defect (Meningomyelocele, Spina Bifi da, Or Anencephaly) false Congenital Heart Defect false Down Syndrome false Tommie-Sachs (eg, Jew, Cajun, Latvian-Limestone) f alse Maria Guadalupe Disease false Sickle Cell Disease Or Trait () false Hemophilia Or Other Blood Disorders false Muscular Dystrophy false Cystic Fibrosis false Timur's Chorea false Mental Retardation/Autism false If Yes, Was Person Tested For Fragile X? false Other Inherited Genetic Or Chromosomal Disorder false Maternal Metabolic Disorder (eg, Type 1 Diabetes , PKU) false Patient Or Baby's Father Had A Child With Defects Not Listed Above false Recurrent Loss, Or A Stillbirth false Medications (including Suppl ements, Vitamins, Herbs, OTC Drugs), Illicit/Recreational Drugs, Alcohol false If Yes, Agent(s) And Strength/Dosage false Any Other Genetic History false Live With Someone With TB Or Exposed To TB false Patient Or Partner Has History Of Genital Herpes false Rash Or Viral Illness Since Last Menstrual Perio d false History Of STD, Gonorrhea, Chlamydia, HPV, Syphi lis false Other Infection History false History of HIV false History of Hepatitis false Prior GBS-infected child false Delivery Information Delivery Date Delivery Type Labor Anesthesia Weeks Gestation Incision Type Labor Labor Length Hrs Delivered By Post Complications Tubal Sterilization Discharge Date Comments 3 Sponta neous Regional-Ep idural 34.3 false 12/04/2022 PPROM Baby will get circ Discharge Information Feeding Method Contraceptive Method Maternal HG B and HCT Levels Bottle
--- OUTSIDE RECORDS SUMMARY | 2024-09-26 17:14 | XMS_ITS | Clinical Summary ---
Author Organization [facility] Address [address] [place] [address] Care Team Providers Care [employer] Brusher Name Role Phone Nettie Rinaldi MD Primary Care Provider [phone] Allergies Active Allergy Reactions Criticality Noted Date [...] sent.-plan follow up with primary OB in [place], [place]. Desires discharge home today. Surgical History Surgery Date Site/Laterality Comments SKIN GRAFT Social History Tobacco Use Types Packs/Day Years [...] often do you attend chur ch or zoroastrianism services? Never 12/03/2022 Do you belong to any clubs o r organizations such as jew groups, unions, fraternal or athletic groups, or [...] staff should administer the PHQ-9) 0 11/22/2022 [facility] [place] of Occupat ional [facility] - Occupational Stress Questionnaire Answer Date Recorded [...] place to sleep or slept in a senior care (including now)? No 12/03/2022 Personal Safety Answer Date Recorded Have you ever been in or are you currently in a harmful physical or emotional relationship or is someone making you feel afraid or unsafe? 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 Gender Identity Not on file Sexual Orientation Not on file Obstetrics History Para Term AB IAB SAB Ectopic Multiple Livin g Live Births 1 1 1 0 1 1 Date Outcome GA Total Labor Labor/2nd/3rd Weight Sex Type Anes PTL Sarah A1 A5 Name Clin 2022 34w 6d 2h 28m 2h 25m/0h 03m 2.44 kg (5 lb 6.1 oz) M Vag-S pont Epidur al Y Livin g 8 9 [place] Linda , Patricia Amaral MD Complications:None Delivery Location:[facility] Main C ampus ([facility]LD) Last Filed Vital Signs Vital Sign Reading [...] 03/31/2024 7:27 PM CDT Plan of Treatment Health Maintenance Due Date Last Done Comments Cervical Cancer Screening 2002 Hepatitis C Screening 2002 Regular Well Visit/Exam 18-64 2020 DTaP/Tdap/Td Vaccine (6 - Td or Tdap) 03/11/2023 03/11/2013, 03/30/2008, 01/23/2005, Additional history exists Depression Screening 11/23/2023 11/22/2022, 11/23/19 23 Chlamydia and Gonorrhea (GC/ CT) Screening 12/03/2023 12/02/2022, 12/02/2022 Covid-19 Vaccine (2023-09 5 season) 2024 02/28/2021, 01/31/2021 Influenza Vaccine (#1) 2024 6, 10/17/2015, 05/05/2014, Additional history exists Hepatitis B Screening Completed 11/29/2004 , 06/28/2003, 06/28/2003, Additional history exists Pneumococcal vaccine <65 Completed 006, 06/28/2003, 05/27/2003 Varicella Vaccines Completed 03/30/2008, 11/29/2004 HPV Vaccines Completed 09/01/2014, 08/2013, 03/01/2014 Meningococcal Vaccine Completed 12/05/2018, 014 Meningococcal B Vaccine Completed 01/07/2019, 12/05 Procedures Procedure Name Priority Date/Time Associated Diagnosis Comments N. GONORRHOEAE/C. TRACHOMATIS AMPLIFICATION Routine 12/02/2022 2:46 PM CDT from Last 3 Months or Most Recently Relevant to Health Maintenance Results * N. gonorrhoeae/C. trachomatis Amplification Urine (12/02/2022 2:46 PM CDT) C. trachomatis Not Detected Not Detected [facility] N. gonorrhoeae Not Detected Not Detected [facility] Comment: Interpretive Data Testing performed by the [facility]. This assay detects Chlamydia trachomatis and [...] LAB MICROBIOLOGY - GENERAL ORDERABLES Final Result [facility] Department [place] [address] from Last 3 Months or Most Recently Relevant to Health Maintenance Insurance [facility] Advance Directives For more information, please contact: [phone] * Full Code (Latest Code Status on File) Date Activated Date Inactivated Comments 12/03/2022 2:11 AM 12/04/2022 9:52 PM * Full Code Date Activated Date Inactivated Comments 12/02/2022 1:44 PM 12/03/2022 2:11 AM Full CPR in c ase of cardiopulmonary arrest Care Teams [employer]her Relationship Specialty Start Date End Date Nettie Rinaldi MD [address] [place] [address] PCP - General Family Medicine 03/31/24
--- OUTSIDE RECORDS SUMMARY | 2024-09-26 17:14 | XMS_ITS | Clinical Summary ---
Author Organization [facility] Address [address] [place] [address] Phone Care Team Providers Care Nephrology Nurse Name Role Phone Alba Cervantes MD Primary Care Provider [phone] Quyen David APRN, RECORDS MANAGEMENT CLERK Unavailable [phone] Allergies Active Allergy Reactions Criticality Noted Date Comments Hydrocodone-Acetamin ophen Other (see Comments) 10/24/2016 Family h/o breathing problems Medications baclofen (LIORESAL) 10 MG Tablet TAKE ONE TABLET BY MOUTH 2 TO 3 TIMES A DAY NEEDED FOR MUSCLE SPASM OR PAIN 02/22/2024 Active meloxicam (MOBIC) 15 MG TabletIndication s:Chronic bilateral low back pain with sciatica, sciatica laterality unspecified Take 1 Tablet by mouth daily. 90 Tablet 3 03/10/2024 Active Active Problems Problem Noted Date Diagnosed Date Anemia 12/19/2021 Immunizations Immunization Administration Dates Next Due DTAP VACCINE 01/23/2005,11/29/2004 DTAP/HEPB/IPV Vaccine 06/28/2003,05/27/2003 DTP Vaccine 03/30/2008 Hepatitis A Vaccine,unspecified Formulation 03/06 Hepatitis A, Pediatric, Unsp ecified Formulation 11/28/2005,01/23/2005 Hepatitis B Vaccine, Pediatric/adolescent 2004,2002 Hib (HbOC) 01/23/2005,06/28/2003,05/27/2003 Human Papillomavirus Vaccine (HPV), quadrivalent 09/01/2014,05/05/2014,03/01/2014 Influenza Vaccine Quadrivalent Nasal 05/05/2014 Influenza Vaccine, Quadrivalent, PF 04/17/2016,0 10/17/2015 Influenza Vaccine,unspecified Formulation 2002 MMR Vaccine 03/30/2008,11/29/2004 Meningococcal Group B OMV 01/07/2019,12/05/2018 Meningococcal Vaccine 12/05/2018,03/01/2014 Pneumococcal Vaccine Peds - 7 Valent 11/28/2005, 06/28/2003,05/27/2003 Polio Vaccine,unspecified Formulation 03/30/2008 ,11/29/2004 TDAP Vaccine 03/11/2013 Varicella Vaccine Live 03/30/2008,11/29/2004 Social History Tobacco Use Types Packs/Day Years Used Date Smoking Tobacco: Never Smokeless Tobacco: Never Tobacco Cessation:Counseling Given: Not Answered Alcohol Use Standard Drinks/Week Comments Never 0 (1 standard drink = 0.6 oz pur e alcohol) Comments No Sex and Gender Information Value Date Recorded Sex Assigned at Not on file Legal Sex Female 8:01 PM CDT Gender Identity Not on file Sexual Orientation Not on file Last Filed Vital Signs Vital Sign Reading Time Taken Comments Blood Pressure 104/68 03/10/2024 10:43 AM CDT Pulse 122 03/10/2024 10:43 AM CDT Temperature 36.7 C (98.1 F) 03/10/2024 10:43 AM CDT Respiratory Rate 20 03/10/2024 10:43 AM CDT Oxygen Saturation 96% 03/10/2024 10:43 AM CDT Inhaled Oxygen Concentration - - Weight 105 kg (231 lb 6.4 oz) 03/10/2024 10:43 A M CDT Height 167.6 cm (5' 6 ) 03/10/2024 10:43 AM CDT Body Mass Index 37.35 03/10/2024 10:43 AM CDT Plan of Treatment Health Maintenance Due Date Last Done Comments Hepatitis C Virus (HCV) Screening 2002 DTaP/Tdap/Td Immunization (6 - Td or Tdap) 03/11/2023 03/11/2013, 03/30/2008, 01/23/2005, Additional history exists Pap Smear 11/18/2023 Influenza Immunization (#1) 04/05/202404/05, 10/17/2015, 05/05/2014, Additional history exists SARS-COV-2 Immunization (2023- season) 2024 02/28/2021, 01/31/2021 Respiratory Syncytial Virus (RSV) Immunization (Adult) (1 - 1-dose 75+ series) 2077 Polio (IPV) Immunization Discontinued 06/28/2003, 05/06 Hepatitis B Immunization Completed 005, 06/28/2003, 06/28/2003, Additional history exists Pneumococcal Immunization Combined Aged Out 11/28/2005, 06/28/2003, 05/27/2003 No longer eligible based on patient's age to complete this topic Hepatitis A Immunization Discontinued 008, 11/28/2005, 01/23/2005 Measles Mumps Rubella (MMR) Immunization Discontinued 03/30/2008, 11/29/2004 Varicella Immunization Discontinued 03/30/2008, 2004 TdaP Immunization Discontinued 03/11/2013 Human Papillomavirus (HPV) Immunization Completed 09/01/2014, 05/05/2014, 03/01/2014 Meningococcal Immunization (ACWY) Completed 12/05/2018, 03/01/2014 Meningococcal B Immunization Completed 01/07/2019, 12/05/2018 Rotavirus Immunization Aged Out No lo nger eligible based on patient's age to complete this topic Insurance MEDICAID [employer] Care Teams Nephrology Nurse Relationship Specialty Start Date End Date Alba Cervantes MD [address] [place] [address] PCP - General Pediatrics 10/17/15 Quyen David, INTELLIGENCE INTERN, RECORDS MANAGEMENT CLERK [address] [place] [address] Nurse Practitioner Advanced Practice Nurse 06/21/22
[2024-09-26 17:15] VITALS: BP 130/72; PULSE 101; RESP 20; TEMP 36.7; O2SAT 100
[2024-09-26 17:41] LABS: BEDSIDEPREGUCG Negative (Negative)
--- NOTE | 2024-09-26 18:28 | ED_ITS ---
HPI - Extremity Problem General Chief complaint: Extremity Problem,Nontraumatic Stated complaint: left ankle pain, back pain Source: patient Mode of arrival: ambulatory Limitations: no limitations History of Present Illness HPI Narrative: Pt presents for evaluation of pain in anterior aspect of left ankle. Symptom onset earlier this week. She woke from sleep with her symptoms. She does not remember a precipitating cause or injury. Her ex-fiance tried to adjust it by placing pressure on the area where she is experiencing pain while pulling on her heel. This did not seem to help. In fact, it made her symptoms worse. Her current pain rating 6/10 in severity with reading of 8/10 prior to coming in. She is not taking any medication to assist with her symptoms. Movement makes her symptoms worse. She is also concerned about a sore throat. Symptom onset several weeks ago. She states several family members all had RSV. Related Data Home Medications ?Medication ?Instructions ?Recorded ?Confirmed ?Last Taken ?Type No Home Medications 09/26/24 Unknown History Allergies Allergy/AdvReac Type Severity Reaction Status Date / Time acetaminophen Allergy Unknown Anaphylactic Verified 09/26/24 17:23 Shock hydrocodone Allergy Unknown Anaphylactic Verified 09/26/24 17:23 Shock Review of Systems Review of Systems: CONSTITUTIONAL: Denies fever, chills, or sweats. EYES: Denies visual changes, redness, or discharge. ENT: Reports sore throat. Denies rhinorrhea, congestion, or otalgia. CARDIOVASCULAR: Denies chest pain, palpitations, or edema. RESPIRATORY: Denies cough or dyspnea. GASTROINTESTINAL: Denies abdominal pain, nausea, vomiting, or diarrhea. GENITOURINARY: Denies dysuria or hematuria. SKIN: Denies rash or itching. MUSCULOSKELETAL: Reports pain in the anterior aspect of left ankle NEUROLOGIC: Denies headache, numbness, dizziness, or weakness. PSYCHIATRIC: Denies anxiety or depression. ON LICENSE OF [facility] Past Medical History Medical History Lumbar spondylosis Strep pharyngitis Surgical History Surgical History No history of previous surgery Family History Family History Other Family history non-contributory Social History Social History Smoking status: Never smoker Alcohol intake: never Substance use: never Living arrangements: with family Gender identity (if verbalized by the patient): Female Spiritual care concerns: No Exam Narrative: GENERAL: Well-appearing, well-nourished, and in no acute distress. HEAD: Normocephalic, atraumatic. EYES: PERRLA and EOMI. ENT: Nares clear, no rhinorrhea or epistaxis. Mucous membranes moist. Oropha rynx without tonsillar hypertrophy exudate or other lesions. Bilateral TMs pearly westbrook nonbulging NECK: Supple. No adenopathy or masses. No carotid bruits or JVD CHEST: Clear to auscultation. No respiratory distress. No wheezes rales or rhonchi HEART: Regular rate and rhythm. No murmur heard. Normal peripheral pulses. ABDOMEN: Soft, nontender, nondistended, normal active bowel sounds. EXTREMITIES: There is tenderness in the anterior aspect of the left ankle. No crepitus or deformity. She is able to dorsi and plantar flex the left foot. There is no swelling present. SKIN: Warm, dry, no rash. NEURO: No focal deficits. Alert and oriented x3. PSYCH: Normal mood and affect. Course Course Emergency Course: This is a 23-year-old female who presented for evaluation of left ankle pain. X-ray negative for fracture. Exam is consistent with strain. She has an Hieu wrap at home. She will take icuk-lii-icjewjr agents for symptom management. Her strep was negative. Likely viral in origin. Follow-up with primary provider. Go to the ER for worsening symptoms. Patient in agreement with plan of care Level of Care: Express Care Visit Vital Signs Vital signs: Vital Signs Temperature 36.7 C 09/26/24 17:15 Pulse Rate 101 H 09/26/24 17:15 Respiratory Rate 09/26/24 17:15 Blood Pressure 130/72 09/26/24 17:15 Pulse Oximetry 100 09/26/24 17:15 Oxygen Delivery Room Air 09/26/24 17:15 Temperature 36.7 C 09/26/24 17:15 Pulse Rate 101 H 09/26/24 17:15 Respiratory Rate 20 09/26/24 17:15 Blood Pressure 130/72 09/26/24 17:15 Pulse Oximetry 100 09/26/24 17:15 Oxygen Delivery Room Air 09/26/24 17:15 MDM - Extremity (Nontraumatic) Lab Data Labs: Lab Results 09/26/24 09/26/24 Range/Units 17:32 18:28 POC Urine HCG, Qual Negative (Negative) POC Grp A Strep Screen Negative (Negative) Imaging Data Radiologist's impression: EXAMINATION: XR ankle LT min 3V DATE: 09/26/2024 17:53 INDICATION: Left ankle pain. TECHNIQUE: 4 views of left ankle were obtained. COMPARISON: None. FINDINGS: Alignment is normal. No fracture. Joint spaces are normal. There is an enthesophyte at plantar aspect of calcaneal tuberosity. IMPRESSION: 1. No fracture. Discharge Plan Discharge Clinical Impression: Left ankle strain, Pharyngitis Patient Disposition: Home, Self-Care Condition: Stable Instructions: Antibiotic Form, Muscle Strain (ED), Pharyngitis (ED) Additional Instructions: IBUPROFEN SHOULD HELP WITH PAIN ELEVATE YOUR LEG WHEN NOT AMBULATING Patient Language: Citizen Of [place] Prescriptions: No Action No Home Medications Follow-up/Referrals: Arturo Roberts MD [Physician] - Time of Disposition: 18:49
[2024-09-26 18:41] LABS: EDSTREPNEGPOS1 Negative (Negative)
== END 2024-09-26 19:04 | disposition home or self-care (01) ==
PROVIDERS: Emergency Provider Nurse Practitioner
DX: S96.912A Strain of unspecified muscle and tendon at ankle and foot level, left foot, initial encounter (principal); X58.XXXA Exposure to other specified factors, initial encounter; J02.9 Acute pharyngitis, unspecified; M47.816 Spondylosis without myelopathy or radiculopathy, lumbar region
CPT/HCPCS: 73610; 81025; 87081; 87880; 99213; G0463

== ENCOUNTER 2024-10-03 17:21 | Emergency (ER) | payer OTHER, SELFPAY ==
--- NOTE | 2024-10-03 17:27 | ED.URI ---
HPI - URI/Sore Throat General Chief Complaint: Upper Respiratory Infection Stated Complaint: Sore Throat/Congestion/Cough Time Seen by Provider: 10/03/24 17:39 Source: patient and RN notes reviewed Mode of arrival: ambulatory Limitations: no limitations History of Present Illness HPI Narrative: 23-year-old female presents with concern of for one-week history of sore throat, nasal congestion, cough. She reports she is taking bbbc-fen-peyjzal medications without relief. MD elicited complaint: cough, sore throat and nasal congestion Related Data Allergies Allergy/AdvReac Type Severity Reaction Status Date / Time acetaminophen Allergy Unknown Anaphylactic Verified 10/03/24 17:48 Shock hydrocodone Allergy Unknown Anaphylactic Verified 10/03/24 17:48 Shock Review of Systems Review of Systems: CONSTITUTIONAL: Denies malaise, chills, sweats, or fever. EYES: Denies visual changes, redness, or discharge. ENT: Reports rhinorrhea, congestion,and sore throat. CARDIOVASCULAR: Denies chest pain, palpitations, or edema. RESPIRATORY: Reports cough. Denies dyspnea. GASTROINTESTINAL: Denies abdominal pain, nausea, vomiting, diarrhea SKIN: Denies rash or itching. MUSCULOSKELETAL: Denies myalgia. NEUROLOGIC: Denies headache. All systems reviewed & are unremarkable except as noted in HPI and below PMFSH Past Medical History Medical History Lumbar spondylosis Strep pharyngitis Surgical History Surgical History No history of previous surgery Family History Family History Other Family history non-contributory Social History Social History Smoking status: Never smoker Alcohol intake: never Substance use: never Living arrangements: with family Gender identity (if verbalized by the patient): Female Spiritual care concerns: No Comments At time of signature, agree with nursing past medical, surgical, social and family history. There is no relevant family history pertinent to the presenting complaint Exam Narrative: GENERAL: Nontoxic-appearing, well-nourished, and in no acute distress. HEAD: Normocephalic EYES: PERRLA, conjunctivae clear ENT: Nares clear. Mucous membranes moist. TM pearly westbrook with dull light reflex bilaterally; no tragal tenderness. Oropharynx not erythematous without lesions. Tonsils not enlarged and without exudate, no drooling, no hoarseness, no trismus, uvula midline. NECK: Supple. No lymphadenopathy CHEST: Clear to auscultation, breath sounds equal. No wheezing, rhonchi, rales, or stridor. No respiratory distress, speaks in full sentences. Cough noted HEART: Regular rate and rhythm. No murmur heard. SKIN: Warm, dry, no rash. NEURO: Alert and oriented x3. PSYCH: Normal mood and affect Course Course Emergency Course: Patient is aware of diagnosis, understands and agrees to treatment plan. Anticipatory guidance given. Patient agrees to follow-up as directed and is aware of reasons to seek care at the emergency department. Portions of this record may have been created with voice recognition software Level of Care: Express Care Visit Vital Signs Vital signs: Reviewed. MDM - URI/Sore Throat MDM Narrative Medical decision making narrative: Differential diagnosis considered: Ele virus, strep pharyngitis, allergic rhinitis, upper respiratory tract infection, sinusitis, rhinosinusitis, nasopharyngitis. viral pharyngitis, otitis media, otitis externa, pneumonia, bronchitis, viral cough syndrome, viral syndrome, and influenza. Exam findings show no acute concerns or changes; patient is non-toxic appearing and is in no distress. Patient is appropriate for outpatient treatment and follow-up. Lab Data Attestation: I reviewed the patient's lab results. Critical Care Time Critical Care Time Critical Care Time: No Discharge Plan Discharge Clinical Impression: Sinobronchitis Patient Disposition: Home, Self-Care Condition: Stable Instructions: Antibiotic Form, Acute Bronchitis (ED) Additional Instructions: Take medications as directed Recommend antihistamine such as Benadryl at night time and Zyrtec or Samanta during the day Cough syrup may cause drowsiness; avoid driving or take it at night time. Also, recommend symptomatic treatment includes: rest, fluids, and increase humidity of the air at home. Recommend Acetaminophen as directed on the bottle to reduce fever, pain, headache. Avoid smoking/second-hand smoke. Please schedule a follow-up visit with your personal physician for further evaluation and treatment within 3-5days. If your symptoms persist, change or worsen significantly before you can contact your personal physician then please, without delay, go to the emergency department for further evaluation. Patient Language: [place] Prescriptions: New promethazine-DM 6.25-15 mg/5 mL syrup 5 ml PO Q4-6H PRN (Reason: cough) Qty: 120 0RF azithromycin [Zithromax Z-Chris] 250 mg tablet See Rx Instructions .ROUTE .COMPLEX Qty: 6 0RF Rx Instructions: take 500 mg today (day 1), then 250 mg for 4 days (days 2-5) methylprednisolone [Medrol (Chris)] 4 mg tablets,dose pack See Rx Instructions .ROUTE .COMPLEX Qty: 21 0RF Rx Instructions: orally per package directions Follow-up/Referrals: UNKNOWN,DOCTOR [Primary Care Provider] - Time of Disposition: 17:50
[2024-10-03 17:33] VITALS: BP 133/71; PULSE 116; RESP 16; TEMP 36.4; O2SAT 98
== END 2024-10-03 17:59 | disposition home or self-care (01) ==
PROVIDERS: Emergency Provider Nurse Practitioner
DX: J32.9 Chronic sinusitis, unspecified (principal); J40 Bronchitis, not specified as acute or chronic; M47.816 Spondylosis without myelopathy or radiculopathy, lumbar region
CPT/HCPCS: 99213; G0463